=== PATIENT | female | born 1940 | race African-American/Black ===

== ENCOUNTER → 2017-02-08 | Outpatient (CLI) | payer MEDICARE, OTHER ==
[2016-08-12 11:10] VITALS: BP 112/66
[~2017-02-08] MED LIST: ALEN35TA6 PO; ALPR0.254 PO; ASPI-482 PO; CALC600T4 PO; CARV12.52 PO; CYCL10TA2 PO; ELON MATRIX PO; LANS30CA66 PO; LISI1TAB5 PO; LORA0.5T PO; OMEG1CAP28 PO; OMEP40CA5 PO; OXYC-323 PO; POLY17PO29 PO; PRAV20TA2 PO; SPIR25TA3 PO; WARF1TAB74 PO; ZOLP10TA4 PO
--- NOTE | 2017-02-08 12:23 | RAD ---
DATE: February 08, 2017 EXAM: DIGITAL SCREEN BILAT W/CAD HISTORY: Screening study. COMPARISON: 2014 and 2015. This study was interpreted with the benefit of Computerized Aided Detection (CAD). FINDINGS: The breast parenchyma is heterogeneously dense. There are no dominant suspicious masses, suspicious microcalcifications or evidence of architectural distortion. . IMPRESSION: No mammographic indicators for malignancy BI-RADS CATEGORY: 1 NEGATIVE RECOMMENDED FOLLOW-UP: 12M 12 MONTH FOLLOW-UP PQRS compliance statement: Patient information was entered into a reminder system with a target due date February 09, 2018 for the next mammogram. Mammography is a sensitive method for finding small breast cancers, but it does not detect them all and is not a substitute for careful clinical examination. A negative mammogram does not negate a clinically suspicious finding and should not result in delay in biopsying a clinically suspicious abnormality. "Our facility is accredited by the [employer] Mammography Program." The patient's breast density may affect the ability of mammography to detect breast cancer. There are 4 categories of breast density, A, B, C and D. Breast density A means that most of the breast tissue is replaced with adipose tissue and therefore is not dense. Breast density B means that the breast tissue is mildly dense and scattered. Breast density C means that the breast tissue is heterogeneously dense. Breast density D means that the breast tissue is very dense. Breast densities especially C and D may decrease the sensitivity of mammography to detect breast cancer. Therefore, the patient may benefit from 3-D breast mammography (3D breast tomography) as a part of their screening mammogram. Insurance may or may not pay for this additional imaging. The patient's breast density based on today's mammogram is category C.
== END | disposition home or self-care (01) ==
LOC: MAMMO 08:00
PROVIDERS: ATTEND Obstetrics & Gynecology
DX: Z12.31 Encounter for screening mammogram for malignant neoplasm of breast (principal)
CPT/HCPCS: G0202; 77067

== ENCOUNTER → 2017-04-02 | Outpatient (CLI) | payer MEDICARE, OTHER ==
[2016-08-12 11:10] VITALS: BP 112/66
--- NOTE | 2017-04-02 15:10 | RAD ---
Pelvic ultrasound, 04/02/2017: History: Pelvic pain Transabdominal and transvaginal scans were obtained. The uterus is surgically absent. The ovaries could not be visualized. No pelvic mass or abnormal fluid collection is seen. IMPRESSION: 1. Status post hysterectomy. 2. No pelvic abnormality is detected. CT scanning may be useful for further evaluation, if clinically indicated.
== END | disposition home or self-care (01) ==
LOC: US 14:06
PROVIDERS: ATTEND Obstetrics & Gynecology
DX: R10.2 Pelvic and perineal pain (principal); Z90.710 Acquired absence of both cervix and uterus
CPT/HCPCS: 76830; 76856

== ENCOUNTER 2017-07-15 08:09 | Emergency (ER) | payer MEDICARE, OTHER ==
--- NOTE | 2017-07-15 08:23 | EKG ---
[facility] [address] [place] [address] Test Date: 2017-07-15 Test Time: 08:16:52 Pat Name: JULIANNE BELCHER Department: Room: Gender: F Student Financial Aid Manager: : 1940 Requested By: LENNOX HERNADEZ Order Number: [id number] Reading MD: Measurements Intervals [place] Rate: 96 P: 42 UT: 144 QRS: -13 QRSD: 80 T: 32 QT: 328 QTc: 421 Interpretive Statements SINUS RHYTHM LEFTWARD AXIS OTHERWISE NORMAL ECG RI6.01 No previous ECG available for comparison
[2017-07-15] MEDS ORDERED: ACETAMINOPHEN 500 MG TABLET PO ONE (08:30)
--- NOTE | 2017-07-15 08:32 | PHYS DOC ---
Past Medical History Past Medical History: Diabetes-Type II, Hypertension Alcohol Use: Rarely Drug Use: None Adult General Chief Complaint Chief Complaint: CHEST PAIN HPI HPI Patient is a 77 year old female who presents with cough, right-sided chest and back pain. Patient's had symptoms for several days, is feeling weak and having warm flashes with sweating. The pain is constant, worse with coughing. She was seen by her primary care doctor's office on Wednesday and prescribed azithromycin and codeine. However her symptoms have been persistent. The cough is caused her to vomit as well as developed a headache. She denies other body aches, no reported fevers. She denies any known cardiac or lung disease, she is not a smoker. PCP is Dr. Elizondo Review of Systems Review of Systems Constitutional: Denies fever or chills [] Eyes: Denies change in visual acuity, redness, or eye pain [] HENT: Reports nasal congestion Respiratory: Per history of present illness Cardiovascular: No additional information not addressed in HPI [] GI: Denies abdominal pain, nausea, vomiting, bloody stools or diarrhea [] : Denies dysuria or hematuria [] Musculoskeletal: Denies joint pain [] Integument: Denies rash or skin lesions [] Neurologic: Denies focal weakness or sensory changes [] Current Medications Current Medications Current Medications Medications (Trade) Dose Ordered Sig/Yogi Start Time Stop Time Status Last Admin Dose Admin Acetaminophen (Tylenol) 1,000 mg 1X ONCE 07/15/17 08:30 07/15/17 08:31 DC 07/15/17 08:48 1,000 MG Ketorolac Tromethamine (Toradol) 30 mg 1X ONCE 07/15/17 09:15 07/15/17 09:32 DC 07/15/17 09:57 30 MG Allergies Allergies Allergies Coded Allergies Type Severity Reaction Last Updated Verified ciprofloxacin Allergy Intermediate muscles spasms 08/11/16 Yes diclofenac Allergy Intermediate 08/12/16 Yes meloxicam Allergy Intermediate 08/12/16 Yes Physical Exam Physical Exam Constitutional: Well developed, well nourished, no acute distress, ill appearing but non-toxic appearance. Voice exhibits laryngitis HENT: Normocephalic, atraumatic, bilateral external ears normal, oropharynx moist, no oral exudates, nose normal. [] Eyes: PERRLA, EOMI, conjunctiva normal, no discharge. [] Neck: Normal range of motion, no tenderness, supple, no stridor. [] Cardiovascular:Heart rate regular with regular rhythm, no murmur [] Lungs & Thorax: Bilateral breath sounds clear to auscultation, moderate air movement, no appreciable wheeze or crackles Abdomen: Bowel sounds normal, soft, no tenderness, no masses, no pulsatile masses. [] Skin: Warm, dry, no erythema, no rash. [] Back: No tenderness, no CVA tenderness. [] Extremities: No tenderness, no cyanosis, no clubbing, ROM intact, no edema. [] Neurologic: Alert and oriented X 3, normal motor function, normal sensory function, no focal deficits noted. [] Psychologic: Affect normal, judgement normal, mood normal. [] Current Patient Data Vital Signs Vital Signs Date Time Temp Pulse Resp B/P (MAP) Pulse Ox O2 Delivery O2 Flow Rate FiO2 07/15/17 09:59 86 22 147/85 (105) 95 Room Air 07/15/17 08:18 97.6 97.6 Lab Values Laboratory Tests Test 07/15/17 08:20 07/15/17 08:38 White Blood Count 5.7 x10^3/uL (4.0-11.0) Red Blood Count 5.42 x10^6/uL (3.50-5.40) H Hemoglobin 14.4 g/dL (12.0-15.5) Hematocrit 43.9 % (36.0-47.0) Mean Corpuscular Volume 81 fL (79-100) Mean Corpuscular Hemoglobin 27 pg (25-35) Mean Corpuscular Hemoglobin Concent 33 g/dL (31-37) Red Cell Distribution Width 14.9 % (11.5-14.5) H Platelet Count 267 x10^3/uL (140-400) Neutrophils (%) (Auto) 49 % (31-73) Lymphocytes (%) (Auto) 42 % (24-48) Monocytes (%) (Auto) 7 % (0-9) Eosinophils (%) (Auto) 2 % (0-3) Basophils (%) (Auto) 1 % (0-3) Neutrophils # (Auto) 2.8 x10^3uL (1.8-7.7) Lymphocytes # (Auto) 2.4 x10^3/uL (1.0-4.8) Monocytes # (Auto) 0.4 x10^3/uL (0.0-1.1) Eosinophils # (Auto) 0.1 x10^3/uL (0.0-0.7) Basophils # (Auto) 0.0 x10^3/uL (0.0-0.2) Prothrombin Time 12.9 SEC (11.7-14.0) Prothrombin Time INR 1.0 (0.8-1.1) Sodium Level 138 mmol/L (136-145) Potassium Level 3.8 mmol/L (3.5-5.1) Chloride Level 101 mmol/L (98-107) Carbon Dioxide Level 29 mmol/L (21-32) Anion Gap 8 (6-14) Blood Urea Nitrogen 19 mg/dL (7-20) Creatinine 0.7 mg/dL (0.6-1.0) Estimated GFR (Cockcroft-Gault) 98.7 BUN/Creatinine Ratio 27 (6-20) H Glucose Level 199 mg/dL (70-99) H Calcium Level 9.2 mg/dL (8.5-10.1) Magnesium Level 2.3 mg/dL (1.8-2.4) Total Bilirubin 0.3 mg/dL (0.2-1.0) Aspartate Amino Transferase (AST) 21 U/L (15-37) Alanine Aminotransferase (ALT) 23 U/L (14-59) Alkaline Phosphatase 90 U/L (46-116) Troponin I Quantitative < 0.017 ng/mL (0.000-0.055) Total Protein 7.9 g/dL (6.4-8.2) Albumin 3.4 g/dL (3.4-5.0) Albumin/Globulin Ratio 0.8 (1.0-1.7) L Lactic Acid Level 1.3 mmol/L (0.4-2.0) Laboratory Tests 07/15/17 08:20 Laboratory Tests 07/15/17 08:20 EKG EKG 96 bpm, sinus, normal axis, normal intervals, no ST elevation or depression, nonischemic T waves, interpreted by me telemedicine physician shows 95 bpm, sinus, no dysrhythmia appreciated, interpreted by me SPO2 shows 96% on room air with good waveform, interpreted by me[] Radiology/Procedures Radiology/Procedures Chest x-ray: IMPRESSION: No pulmonary consolidation or acute airspace disease. Course & Med Decision Making Course & Med Decision Making Pertinent Labs and Imaging studies reviewed. (See chart for details) She was given Tylenol for headache and declined other medications at this time. Lab work, chest x-ray obtained. No acute abnormalities on CXR/labs. VSS, slightly elevated bp but pt hasn't take home bp meds today. Instructed to do so at home, continue abx until completed, return if worsening symptoms. f/u with pcp Yam[facility] Disclaimer Dragon Disclaimer This electronic medical record was generated, in whole or in part, using a voice recognition dictation system. Departure Departure Impression: Primary Impression: Upper respiratory infection Additional Impression: Back pain Disposition: HOME, SELF-CARE Referrals: JIMMY FRAUSTO MD (PCP) Problem Qualifiers LENNOX HERNADEZ MD Jul 15, 2017 08:32
[2017-07-15 08:35] LABS: BASO % 1 % (0-3); EOS % 2 % (0-3); HEMATOCRIT 43.9 % (36.0-47.0); HEMOGLOBIN 14.4 g/dL (12.0-15.5); LYMPH # 2.4 x10^3/uL (1.0-4.8); LYMPH % 42 % (24-48); MEAN CORPUSCULAR HEMOGLOBIN 27 pg (25-35); MEAN CORPUSCULAR HGB CONC 33 g/dL (31-37); MEAN CORPUSCULAR VOLUME 81 fL (79-100); MONO % 7 % (0-9); NEUT % 49 % (31-73); PLATELET COUNT 267 x10^3/uL (140-400); RED BLOOD COUNT 5.42 x10^6/uL (3.50-5.40); RED CELL DISTRIBUTION WIDTH 14.9 % (11.5-14.5); WHITE BLOOD COUNT 5.7 x10^3/uL (4.0-11.0)
[2017-07-15 08:39] LABS: CALCIUM 9.2 mg/dL (8.5-10.1); CREATININE 0.7 mg/dL (0.6-1.0); GFR 98.7; POTASSIUM 3.8 mmol/L (3.5-5.1)
[2017-07-15 08:45] LABS: PROTHROMBIN TIME PATIENT 12.9 SEC (11.7-14.0)
[2017-07-15 08:47] LABS: ALBUMIN 3.4 g/dL (3.4-5.0); ALBUMIN/GLOBULIN RATIO 0.8 (1.0-1.7); MAGNESIUM 2.3 mg/dL (1.8-2.4); TOTAL BILIRUBIN 0.3 mg/dL (0.2-1.0); TOTAL PROTEIN 7.9 g/dL (6.4-8.2)
--- NOTE | 2017-07-15 08:53 | RAD ---
PROCEDURE: PORTABLE CHEST 1V CLINICAL INDICATION: CHEST PAIN COMPARISON: Previous study from 07/27/2016 FINDINGS: No pneumothorax identified. Cardiac and mediastinal contours unremarkable. No pulmonary consolidation or acute airspace disease. No acute osseous abnormalities identified. IMPRESSION: No pulmonary consolidation or acute airspace disease.
[2017-07-15] MEDS ORDERED: KETOROLAC 30 MG/ML INJ. IV ONE (09:15)
[2017-07-15 09:59] VITALS: BP 147/85
== END 2017-07-15 10:09 | disposition home or self-care (01) ==
LOC: ER 08:09
DX: J06.9 Acute upper respiratory infection, unspecified (principal); M54.9 Dorsalgia, unspecified; I10 Essential (primary) hypertension; E11.9 Type 2 diabetes mellitus without complications; Z88.1 Allergy status to other antibiotic agents; Z88.8 Allergy status to other drugs, medicaments and biological substances
CPT/HCPCS: 36415; 71010; 80053; 83605; 83735; 84484; 85025; 85610; 93005; 96374; 99285; J1885

== ENCOUNTER → 2018-02-09 | Outpatient (CLI) | payer MEDICARE, OTHER | END | disposition home or self-care (01) | LOC: KCIC MAMMO 08:01 | DX: Z12.31 Encounter for screening mammogram for malignant neoplasm of breast (principal); Z13.820 Encounter for screening for osteoporosis; Z78.0 Asymptomatic menopausal state | CPT/HCPCS: 77063; 77067; 77080 ==

== ENCOUNTER → 2018-02-28 | Outpatient (CLI) | payer MEDICARE, OTHER | END | disposition home or self-care (01) | LOC: KCIC MAMMO 09:30 | DX: N63.10 Unspecified lump in the right breast, unspecified quadrant (principal) | CPT/HCPCS: 76641; 77065 ==

== ENCOUNTER → 2018-05-12 | Outpatient (CLI) | payer MEDICARE, OTHER ==
[~2018-05-12] MED LIST changes: -SPIR25TA3 PO; +SPIR25TA5 PO
--- NOTE | 2018-05-12 16:53 | RAD ---
Examination: CT chest without contrast HISTORY: History of cough COMPARISON: None available technique: Axial CT images of the chest were performed without contrast. Coronal and sagittal reformats are performed Exposure: One or more of the following individualized dose reduction techniques were utilized for this examination: 1. Automated exposure control 2. Adjustment of the mA and/or kV according to patient size 3. Use of iterative reconstruction technique FINDINGS: The central airways are patent. The heart size grossly appears unremarkable. No evidence of pericardial effusion. The ascending aorta measures 4.4 cm in transverse dimension. Coronary artery calcification is identified. Minimal bibasilar lung atelectasis. Partially visualized cystic structures identified in the liver with the largest measuring 1.9 cm in the right lobe of the liver could be cysts or cystic lesions. Visualized spleen, adrenals grossly appears unremarkable. Moderate degenerative changes thoracic spine. Sclerotic density identified at the T12-L1 vertebral level probably due to degeneration. IMPRESSION: 1. Aneurysmal change of the ascending aorta measuring 4.4 cm in transverse dimension. 2. Coronary artery calcifications. 3. Partially visualized cystic structures identified in the liver with the largest measuring 1.9 cm in the right lobe of the liver could be cysts or cystic lesions. Electronically signed by: David Garner MD (05/12/2018 4:49 PM) [id number]
== END | disposition home or self-care (01) ==
LOC: CT 08:54
PROVIDERS: ATTEND Internal Medicine Pulmonary Disease
DX: J98.11 Atelectasis (principal); I71.2 Thoracic aortic aneurysm, without rupture; I25.10 Atherosclerotic heart disease of native coronary artery without angina pectoris; I10 Essential (primary) hypertension; E78.2 Mixed hyperlipidemia; E11.9 Type 2 diabetes mellitus without complications; Z79.01 Long term (current) use of anticoagulants
CPT/HCPCS: 71250

== ENCOUNTER → 2018-09-01 | Outpatient (CLI) | payer MEDICARE, OTHER ==
[~2018-09-01] MED LIST changes: +CARV12.511 PO; -CARV12.52 PO; -OXYC-323 PO; +OXYC1TAB15 PO
--- NOTE | 2018-09-05 15:12 | KCIC ---
BREAST BILATERAL ULTRASOUND Clinical Indication: Six-month follow-up. Comparison: Bilateral breast ultrasound, 02/28/2018. TECHNIQUE: Real-time ultrasound imaging of the right and left breast including all 4 quadrants, retroareolar, and in the axilla is performed. Findings: Right: There are 2 about 3 mm fibrocystic-type lesions at the 7:00 position 2 cm from the nipple that are stable. Left: At the 3:30 o'clock position 3 cm from the nipple there is a 3 mm fibrocystic type lesion that is unchanged. At the 4:00 position 5 cm from the nipple there is a fibrocystic lesion that has decreased in size, previously measuring up to 6 mm, now 3 mm. IMPRESSION: Subcentimeter fibrocystic lesions of the right and left breast are stable or smaller than on the prior study. Recommend additional six-month bilateral ultrasound follow-up when patient returns for screening mammogram. BI-RADS category 3, probably benign. Electronically signed by: Omar Mason MD (09/01/2018 9:56 AM) [id number]
== END | disposition home or self-care (01) ==
LOC: KCIC US 08:39
PROVIDERS: ATTEND Obstetrics & Gynecology
DX: N63.13 Unspecified lump in the right breast, lower outer quadrant (principal); N63.23 Unspecified lump in the left breast, lower outer quadrant
CPT/HCPCS: 76641

== ENCOUNTER 2018-11-14 10:34 | Emergency (ER) | payer MEDICARE, OTHER ==
[~2018-11-14] VITALS: Ht 170.2 cm; Wt 93.9 kg
[2018-11-14 11:17] VITALS: BP 141/87
--- NOTE | 2018-11-14 12:31 | RAD ---
CT HEAD INDICATION: FALL/HEADACHES COMPARISON: 06/01/2013 Exposure: One or more of the following individualized dose reduction techniques were utilized for this examination: 1. Automated exposure control 2. Adjustment of the mA and/or kV according to patient size 3. Use of iterative reconstruction technique TECHNIQUE: 5 mm contiguous axial images were obtained from the skull base to the vertex in both bone and soft tissue algorithm. FINDINGS: Mild bilateral periventricular hypodensities likely chronic small vessel ischemic disease. There is a 7.5 mm density abutting the dura in the left frontal lobe, best visualized on series 3 image #27. No evidence of acute intracranial hemorrhage. No extra-axial fluid collections. No mass effect or midline shift. Ventricular size is appropriate. Basal cisterns are patent. No fractures identified.Cabral-white differentiation is preserved.Globes and orbits are within normal limits. Paranasal sinuses and mastoid air cells are clear. IMPRESSION: 1. No acute intracranial findings. 2. A 7.5 mm density identified abutting the dura of the left frontal lobe probably a meningioma. Follow-up MRI can be considered for further evaluation. Electronically signed by: David Garner MD (11/14/2018 12:27 PM) [id number]
[2018-11-14] MEDS ORDERED: FLUT9.9S NS (13:08)
--- NOTE | 2018-11-14 13:09 | PHYS DOC ---
Past Medical History Past Medical History: Diabetes-Type II, Hypertension (FELICITAS ALEXIS APRN) Past Surgical History: No Surgical History (FELICITAS ALEXIS APRN) Alcohol Use: Rarely Drug Use: None (FELICITAS ALEXIS APRN) Adult General Chief Complaint Chief Complaint: MECHANICAL FALL HPI HPI Patient is a 78 year old female with a history of diabetes type 2, hypertension , who presents to the ED complaining of 7 out of 10 throbbing left-sided headache that began on November 02, 2018 after she fell. She states she was going to sit on a chair, she states the chair moved back and she fell. She states she hit her left head on the ground. Patient denies any loss of consciousness. She states she believes she is draining fluid from her head in her nose. She states she's had congestion since she fell, she states she was seen by her PCP, she states they did x-rays and told her her lungs are as bad as somebody living on a farm and was instructed to take allergy medicines, she states she was misdiagnosed because [place]. She states she does not have allergies either. Patient is requesting a CT of her head. (FELICITAS ALEXIS APRN) Review of Systems Review of Systems Constitutional: Denies fever or chills [] Eyes: Denies change in visual acuity, redness, or eye pain [] HENT: Denies nasal congestion or sore throat [] Respiratory: Denies cough or shortness of breath [] Cardiovascular: No additional information not addressed in HPI [] GI: Denies abdominal pain, nausea, vomiting, bloody stools or diarrhea [] : Denies dysuria or hematuria [] Musculoskeletal: Denies back pain or joint pain [] Integument: Denies rash or skin lesions [] Neurologic: Reports head injury, denies focal weakness or sensory changes [] All other systems were reviewed and found to be within normal limits, except as documented in this note. (FELICITAS ALEXIS APRN) Allergies Allergies Allergies Coded Allergies Type Severity Reaction Last Updated Verified ciprofloxacin Allergy Intermediate muscles spasms 08/11/16 Yes diclofenac Allergy Intermediate 08/12/16 Yes meloxicam Allergy Intermediate 08/12/16 Yes (SOBEIDA PRICE MD) Physical Exam Physical Exam Constitutional: Well developed, well nourished, no acute distress, non-toxic appearance. [] HENT: Normocephalic, atraumatic, bilateral external ears normal, oropharynx moist, no oral exudates, patient has clear rhinorrhea from bilateral nasal cavities. Eyes: PERRLA, EOMI, conjunctiva normal, no discharge. [] Neck: Normal range of motion, no tenderness, supple, no stridor. [] Cardiovascular:Heart rate regular rhythm, no murmur [] Lungs & Thorax: Bilateral breath sounds clear to auscultation [] Abdomen: Bowel sounds normal, soft, no tenderness, no masses, no pulsatile masses. [] Skin: Warm, dry, no erythema, no rash. [] Back: No tenderness, no CVA tenderness. [] Extremities: No tenderness, no cyanosis, no clubbing, ROM intact, no edema. [] Neurologic: Alert and oriented X 3, normal motor function, normal sensory function, no focal deficits noted. Cranial nerves II through XII intact. Psychologic: Affect normal, judgement normal, mood normal. [] (FELICITAS ALEXIS APRN) Current Patient Data Vital Signs Vital Signs Date Time Temp Pulse Resp B/P (MAP) Pulse Ox O2 Delivery O2 Flow Rate FiO2 11/14/18 11:17 97.8 86 18 141/87 (105) 97 Room Air 97.8 (SOBEIDA PRICE MD) EKG EKG [] (FELICITAS ALEXIS APRN) Radiology/Procedures Radiology/Procedures []PROCEDURE: CT HEAD WO CONTRAST CT HEAD INDICATION: FALL/HEADACHES COMPARISON: 06/01/2013 Exposure: One or more of the following individualized dose reduction techniques were utilized for this examination: 1. Automated exposure control 2. Adjustment of the mA and/or kV according to patient size 3. Use of iterative reconstruction technique TECHNIQUE: 5 mm contiguous axial images were obtained from the skull base to the vertex in both bone and soft tissue algorithm. FINDINGS: Mild bilateral periventricular hypodensities likely chronic small vessel ischemic disease. There is a 7.5 mm density abutting the dura in the left frontal lobe, best visualized on series 3 image #27. No evidence of acute intracranial hemorrhage. No extra-axial fluid collections. No mass effect or midline shift. Ventricular size is appropriate. Basal cisterns are patent. No fractures identified.Cabral-white differentiation is preserved.Globes and orbits are within normal limits. Paranasal sinuses and mastoid air cells are clear. IMPRESSION: 1. No acute intracranial findings. 2. A 7.5 mm density identified abutting the dura of the left frontal lobe probably a meningioma. Follow-up MRI can be considered for further evaluation. Electronically signed by: David Garner MD (11/14/2018 12:27 PM) [id number] DICTATED and SIGNED BY: DAVID GARNER MD DATE: 11/14/18 1227 (FELICITAS ALEXIS APRN) Course & Med Decision Making Course & Med Decision Making Pertinent Labs and Imaging studies reviewed. (See chart for details) This is a 78-year-old female patient presenting to the ED today complaining of head pain which began on November 02, 2018 after she fell hitting her head on the ground. No loss of consciousness. Patient is also complaining of nasal congestion since then. She already had a chest x-ray done. See history of present illness. CT of the head was negative for any acute findings. CT noted for 7.5 mm density identified abutting the dura of the left frontal lobe probably a meningioma. Follow-up MRI can be considered for further evaluation. Paranasal sinuses and mastoid air cells are clear. Results communicated to patient. She states she has a PCP, requested they follow up for this meningioma. In the meantime I gave her prescription for Flonase. Provided return precautions and discharged in stable condition. (FELICITAS ALEXIS APRN) Course & Med Decision Making Staff Physician Addendum: I was working in the ER during the course of this patient's visit. I was available for consultation as needed, but I was not directly involved in the care of this patient. (SOBEIDA PRICE MD) Dragon Disclaimer Dragon Disclaimer This electronic medical record was generated, in whole or in part, using a voice recognition dictation system. (FELICITAS ALEXIS APRN) Departure Departure Impression: Primary Impression: Meningioma Additional Impressions: Head injury Nasal drainage Fall Disposition: HOME, SELF-CARE Condition: STABLE Referrals: [employer]ING ATTORNEY (PCP) follow up with your doctor in 1 week Patient Instructions: Head Injury, Adult Additional Instructions: You were evaluated in the emergency room, your CT of the head was negative for any acute findings but noted for meningioma which needs to be followed up with your primary care doctor for outpatient MRI. Your paranasal sinuses and mastoid sinuses on CT are clear. We gave you a prescription for Flonase, this will help manage the running nose. You can follow-up with the provided ENT if nasal drainage continues. Scripts Fluticasone Propionate (Flonase Allergy Relief) 9.9 Ml [place].susp 2 SPRAYS NS DAILY, #1 BOTTLE Prov: FELICITAS ALEXIS WAX CUTTER 11/14/18 Problem Qualifiers Additional Impressions: Head injury Encounter type: initial encounter Qualified Codes: S09.90XA - Unspecified injury of head, initial encounter Fall Encounter type: initial encounter Qualified Codes: W19.XXXA - Unspecified fall, initial encounter FELICITAS ALEXIS WAX CUTTER Nov 14, 2018 13:09 SOBEIDA PRICE MD Nov 14, 2018 17:21
== END 2018-11-14 13:14 | disposition home or self-care (01) ==
LOC: ER 10:34
DX: S09.90XA Unspecified injury of head, initial encounter (principal); D32.9 Benign neoplasm of meninges, unspecified; R09.81 Nasal congestion; I10 Essential (primary) hypertension; E11.9 Type 2 diabetes mellitus without complications; Z88.1 Allergy status to other antibiotic agents; Z88.8 Allergy status to other drugs, medicaments and biological substances; W01.198A Fall on same level from slipping, tripping and stumbling with subsequent striking against other object, initial encounter; Y93.89 Activity, other specified; Y92.89 Other specified places as the place of occurrence of the external cause; Y99.8 Other external cause status
CPT/HCPCS: 70450; 99284

== ENCOUNTER → 2019-01-02 | Outpatient (CLI) | payer MEDICARE, OTHER ==
[~2019-01-02] MED LIST changes: +FLUT9.9S NS
--- NOTE | 2019-01-02 12:06 | KCIC ---
CT of the chest without contrast 01/02/2019 Indication: [Dilatation of the ascending thoracic aorta. Follow-up exam] Comparison study: [CT of the chest the 2017] Technique: Multidetector CT imaging of the chest was performed without the administration of IV contrast. Findings: Heart size is normal. Calcification of coronary arteries noted. No significant pericardial effusion is seen. No pathologic mediastinal adenopathy is identified. Ectasia of ascending thoracic aorta measuring up to approximately 4.5 cm is grossly stable in the interim since comparison study. A 4 mm groundglass nodule in the left upper lobe is stable (axial image 26). Small nodule in the basilar right lower lobe is also stable measuring 3 mm in diameter (axial image 44). No focal consolidation or infiltrate is seen. No pneumothorax or pleural effusion is seen. No acute osseous abnormality is identified. Limited visualization of the upper abdomen demonstrates no acute abnormality. Impression: 1. Stable ectasia of the ascending thoracic aorta measuring 4.5 cm in diameter 2. Small noncalcified lung nodules are stable with respect to comparison exam. Consider CT follow-up to ensure two-year stability. CT DOSING PQRS STATEMENT: One or more of the following individualized dose reduction techniques were utilized for this examination: 1. Automated exposure control 2. Adjustment of the mA and/or kV according to patient size 3. Use of iterative reconstruction technique Electronically signed by: Zach Hoffman MD (01/02/2019 12:03 PM) [facility]
== END | disposition home or self-care (01) ==
LOC: KCIC CT 09:32
PROVIDERS: ATTEND Nurse Practitioner
DX: I77.810 Thoracic aortic ectasia (principal); R91.8 Other nonspecific abnormal finding of lung field; I25.10 Atherosclerotic heart disease of native coronary artery without angina pectoris; I10 Essential (primary) hypertension; E11.9 Type 2 diabetes mellitus without complications
CPT/HCPCS: 71250

== ENCOUNTER → 2019-02-17 | Outpatient (CLI) | payer MEDICARE, OTHER ==
--- NOTE | 2019-02-21 09:08 | EEG ---
DATE OF SERVICE: 02/17/2019 EEG NUMBER: [id number]. OBJECTIVE: The patient is a 78-year-old right-handed female with episodes of depersonalization, rule out partial complex seizures. DESCRIPTION: This is a digital study. Electrodes are placed according to the international 10-20 system. Bipolar and referential montages are available. Activation procedures typically include hyperventilation and intermittent photic stimulation. INTERPRETATION: The waking background consists of 8-9 Hz, 50-100 microvolt activity symmetrically distributed over parietooccipital regions and reactive to eye opening. Hyperventilation and intermittent photic stimulation are noncontributory. Stage 1 sleep is achieved with normal electroencephalogram patterns. IMPRESSION: This electroencephalogram with the patient awake and asleep is within normal limits. There is no focal, paroxysmal, or epileptiform activity. Thank you for letting us help with the patient's care. KOSTAS YIP MD DR: CASSIDY/paulette JOB#: [id number] / [id number] STEF Atkinson MD
== END | disposition home or self-care (01) ==
LOC: RT 08:04
PROVIDERS: ATTEND Psychiatry & Neurology Neurology with Special Qualifications in Child Neurology
DX: R55 Syncope and collapse (principal)
CPT/HCPCS: 95816

== ENCOUNTER → 2020-04-04 | Outpatient (CLI) | payer MEDICARE, OTHER ==
[2019-04-18 19:18] VITALS: BP 151/82
[~2020-04-04] MED LIST changes: +ALEN35TA11 PO; -ALEN35TA6 PO; -CALC600T4 PO; +CALC600T6 PO; +HYDR-3164 PO; +LISI1TAB37 PO; -LISI1TAB5 PO; +OMEP40CA45 PO; -OMEP40CA5 PO; +WARF1TAB2 PO; -WARF1TAB74 PO
--- NOTE | 2020-04-04 10:27 | KCIC ---
EXAM: DUAL ENERGY X-RAY ABSORPTIOMETRY (DEXA). HISTORY: Postmenopausal screening. FINDINGS: The lowest measured T-score is 0.0 in the left hip, based on a bone mineral density of 0.946 g/cm^2. Refer to the worksheets for full detail. There has been a 1.9 percent decrease in density of the left hip and 4.8 percent increase in density of the lumbar spine compared to a study dated 02/09/2018. IMPRESSION: Normal. Bone mineral density yields a T-score of -1.0 or greater. Fracture risk is low. METHODOLOGY: Dual energy x-ray absorptiometry was performed to measure bone mineral density. The following analysis is based on the 2019 Official Positions of the International Society for Clinical Densitometry: Measurements of the hips and the average of L1-L4 are preferred. When the spine and/or hip cannot be feasibly measured or interpreted, or in the setting of hyperparathyroidism, distal radial bone mineral density may be measured. The lumbar spine T-score is based on the average bone mineral density of L1-L4. In the setting of artifact or anatomic abnormality, some lumbar levels may be excluded, and the remaining levels used for calculation. A single lumbar level is not used for diagnosis, and if only a single level is available for assessment, another anatomic site will be used to assign a diagnosis. The hip T-score is based on the bone mineral density measurement of the femoral neck or total proximal femur of either side, whichever is lowest. Bilateral mean values are not used for diagnosis. The forearm T-score is derived from 33% of the distal radius of the nondominant forearm. Electronically signed by: Charlene Akbar MD (04/04/2020 10:24 AM) [facility]
--- NOTE | 2020-04-04 18:04 | KCIC ---
Bilateral diagnostic digital mammograms with 3-D tomosynthesis: Reason for examination: Follow-up exam. Comparison is made to previous studies dated back to 02/06/2015. Bilateral mammograms in CC and oblique projections were obtained with 2-D imaging and 3-D tomosynthesis imaging on a Siemens Inspiration unit and reviewed on the workstation. Interpretation was made with the benefit of CAD. The skin and nipples show no abnormalities. No abnormal axillary lymph nodes are seen. The breast parenchyma is heterogeneously dense. (Breast density: Category C.) There has been entered multiple development of a bilobed nodular density in the 11:30 12:00 position posteriorly in the right breast. Further evaluation with ultrasound will follow. There are no other new dominant masses, suspicious calcifications or architectural distortion. Benign calcifications are present. Impression: Lobulated nodule in the 11:30 to 12:00 position of the right breast posteriorly. Ultrasound to follow. Your patient's mammogram demonstrates that she has dense breast tissue (breast density category C or D), which could hide abnormalities, and if she has other risk factors for breast cancer that have been identified, she might benefit from supplemental screening tests that may be suggested by you as her ordering physician. Dense breast tissue, in and of itself, is a relatively common condition. Therefore, this information is not provided to cause undue concern, but rather to raise your awareness and to promote discussion with your patient regarding the presence of other risk factors, in addition to dense breast tissue. Your patient's mammography results will be sent to her. BI-RAD Category 0: Incomplete. Needs additional imaging evaluation. Bilateral breast ultrasound: Comparison is made to previous study dated 09/01/2018. Bilateral whole breast ultrasound including evaluation of all 4 quadrants and the retroareolar and axillary regions of both breasts was performed. In the right breast at the 11:00 position 9 cm from the nipple, there is a 1.3 cm intramammary lymph node with a benign appearance. In the 7:00 position 2 cm from the nipple, there is a small 3.4 mm hypoechoic nodule with a benign fibrocystic appearance. In the 12:00 position 7 cm from the nipple however, there appear to be 2 adjacent nodules measuring 4.1 and 4.4 mm in greatest dimensions which correspond to the area of mammographic concern and malignancy is suspected. Further evaluation with ultrasound-guided biopsy is recommended. No abnormal appearing lymph nodes are seen in the right axilla. In the left breast at the 3:30 position 3 cm from the nipple, there is a small 4.9 mm hypoechoic fibrocystic lesion which has a benign appearance. At the 4:00 position 5 cm from the nipple, there is a small 4.3 mm hypoechoic fibrocystic lesion. At the 6:00 position 5 cm from the nipple, there is a small 5.8 mm hypoechoic fibrocystic type lesion. No suspicious left breast lesions are seen. No abnormal appearing lymph nodes are seen in left axilla. IMPRESSION: Small irregularly marginated nodules at the 12:00 position 7 cm from the nipple measuring 4.1 and 4.4 mm in size which correspond to the area of mammographic concern. Recommend further evaluation with ultrasound-guided biopsy. Additional small benign-appearing fibrocystic type lesions bilaterally. Recommend 6 month follow-up. BI-RADS Category 5: Highly suggestive of malignancy. These findings were discussed with the patient and the patient's physician, Dr. Bryant, will be notified about these findings when the office reopens in the morning. "Our facility is accredited by the [employer] Mammography [employer]." This patient's information has been entered into a reminder system for the patient to be notified with the results of her examination and a target date for the next mammogram. Electronically signed by: Nataly Contreras MD (04/04/2020 6:01 PM) [id number]
== END | disposition home or self-care (01) ==
LOC: KCIC MAMMO 08:12
PROVIDERS: ATTEND Obstetrics & Gynecology
DX: R92.8 Other abnormal and inconclusive findings on diagnostic imaging of breast (principal); M81.0 Age-related osteoporosis without current pathological fracture
CPT/HCPCS: 76641; 77066; 77080; G0279; 77062

== ENCOUNTER → 2020-12-17 | Outpatient (CLI) | payer MEDICARE, OTHER ==
[2019-04-18 19:18] VITALS: BP 151/82
[~2020-12-17] MED LIST changes: -ALEN35TA11 PO; +ALEN35TA45 PO; -CALC600T6 PO; +CALC600T60 PO; +GADOTERATE 7.5 MMOL/15ML VIAL. IVP ONE
--- NOTE | 2020-12-17 10:41 | KCIC ---
EXAMINATION: Magnetic resonance imaging (MRI) of the brain and brainstem without and with contrast 12/17/2020 8:10 AM HISTORY: Meningioma. Dizziness, headaches and imbalance TECHNIQUE: Multiplanar multi-weighted MRI of the brain and brainstem was performed without and with i ntravenous contrast using the general brain protocol. Contrast information: 18 mL Gadolinium based contrast COMPARISON: CT head 02/26/2009 FINDINGS: The scalp and calvarium are normal. The superior sagittal sinus demonstrates normal venous flow. The corpus callosum is normal in shape and signal intensity. The posterior fossa is unremarkable. The p ituitary and sella are normal. The brainstem and craniocervical junction are unremarkable. There are T2/FLAIR signal hyperintense foci in the periventricular and subcortical white matter with areas of confluence most suggestive of moderate chronic small vessel ischemic changes. There is a 12 x 8 x 9 m m extra-axial mass at the left vertex with homogeneous enhancement. The mass abuts the left precentra l gyrus without significant mass effect or vasogenic edema. Diffusion weighted images reveal no hyperintensities to suggest acute cerebral infarction. The suscep tibility weighted sequences reveal no evidence of acute or chronic hemorrhage. The ventricles are nor mal in size and position without evidence of hydrocephalus. The paranasal sinuses are normal. The visualized portions of the mastoids are unremarkable. The orbi ts appear normal. Normal flow voids are demonstrated in the carotid arteries and basilar artery. IMPRESSION: Left frontal vertex extra-axial mass measures 12 x 8 x 9 mm in keeping with provided history of menin gioma. Comparison with prior imaging would be of benefit to assess for any interval change. The mass appears excluded from CT head from 02/26/2009. Electronically signed by: Li Khan MD (12/17/2020 10:39 AM) [id number]
== END ==
LOC: KCIC MRI 07:53
PROVIDERS: ATTEND Psychiatry & Neurology Neurology with Special Qualifications in Child Neurology
DX: D32.9 Benign neoplasm of meninges, unspecified (principal); R26.9 Unspecified abnormalities of gait and mobility; G96.198 Other disorders of meninges, not elsewhere classified
CPT/HCPCS: 70553; 82565; A9575